=== PATIENT | female | born 1980 | race Caucasian/White ===

== ENCOUNTER 2016-05-11 17:25 | Emergency (ER) | payer OTHER ==
[2016-05-11 17:39] VITALS: BP 126/59; PULSE 72; TEMP 98.1; BMI 20.9
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
[2016-05-11] MEDS ORDERED: IBUPROFEN 600 MG TABLET (FP) PO ONE ×2 (18:02→19:14)
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
== END 2016-05-11 19:39 | disposition home or self-care (01) ==
LOC: FER 17:25
DX: S16.1XXA Strain of muscle, fascia and tendon at neck level, initial encounter (principal); V43.62XA Car passenger injured in collision with other type car in traffic accident, initial encounter; Y93.89 Activity, other specified; Y92.410 Unspecified street and highway as the place of occurrence of the external cause
CPT/HCPCS: 72050-TC; 84703; 99282-25

== ENCOUNTER 2023-09-19 14:47 | Emergency (ER) | payer OTHER ==
[2023-09-19 15:27] VITALS: BP 104/75; PULSE 70; RESP 15; TEMP 98.7; BMI 22.8
[2023-09-19] MEDS ORDERED: KETOROLAC TROMETHAMINE 30 MG/1 ML VIAL ONE (15:28)
[2023-09-19] MEDS ORDERED: diazePAM 5 MG TABLET ONE (15:29)
[2023-09-19] MEDS ORDERED: LIDOCAINE 5% TOPICAL PATCH ONE (15:29)
[2023-09-19 15:30] LABS: HCG,QUALITATIVE URINE Negative
[2023-09-19] MEDS: diazePAM 5 MG TABLET PO ONE (15:30)
[2023-09-19] MEDS: KETOROLAC TROMETHAMINE 30 MG/1 ML VIAL IM ONE (15:33)
[2023-09-19] MEDS: LIDOCAINE 5% TOPICAL PATCH TP ONE (15:35)
[2023-09-19] MEDS ORDERED: LIDOCAINE PATCH REMOVAL MC SCH (22:00)
== END 2023-09-19 16:15 | disposition home or self-care (01) ==
LOC: FER 14:47
PROC: 3E0133Z Introduction of Anti-inflammatory into Subcutaneous Tissue, Percutaneous Approach (ICD-10-PCS; principal; 2023-09-19)
DX: S39.012A Strain of muscle, fascia and tendon of lower back, initial encounter (principal); X50.1XXA Overexertion from prolonged static or awkward postures, initial encounter
CPT/HCPCS: 81003; 81015; 84703; 99284-25